=== PATIENT | male | born 2000 | race Caucasian/White ===

== ENCOUNTER 2024-01-18 20:18 | Emergency (ER) | payer OTHER, SELFPAY ==
[2024-01-18 20:34] VITALS: BP 145/81; PULSE 79; RESP 16; TEMP 36.6; O2SAT 100; BMI 20.8
[2024-01-18] MEDS: Lidocaine 4 % Cream KIT 1 APPL TOPICAL (22:41)
[2024-01-18] MEDS: LORazepam 1 MG TABLET PO (22:41)
[2024-01-18 22:42] VITALS: BP 145/76; PULSE 72; RESP 16; TEMP 36.6; O2SAT 100
[2024-01-18] MEDS: Lidocaine HCl 1 % MPF 5 ML VIAL SUBCUT (23:12)
--- NOTE | 2024-01-18 23:13 | ED.GENADULT ---
HPI - General Adult General Chief complaint: General Medical Stated complaint: ?hemorroids Time Seen by Provider: 01/18/24 22:15 Source: patient Mode of arrival: ambulatory Limitations: no limitations History of Present Illness ED Provider: JONE HPI narrative: 23 yo male with no sig PMH here with c/o itching rectal area for a week and then 2 days ago worsening pain and unable to have BM since 01/15. He denies trauma to the area, he is not bleeding. He has never had this before. No fevers/chills. MD complaint: rectal pain Onset (ago): week(s) (1) Location: buttocks Radiation: non-radiation Severity: moderate Quality: burning and aching Pain Consistency: constant Exacerbating factors: movement Associated symptoms: denies other symptoms Treatments prior to arrival: none Related Data Previous Rx's ?Medication ?Instructions ?Recorded amoxicillin 875 mg-potassium 1 tab PO BID #13 tabs 01/19/24 clavulanate 125 mg tablet docusate sodium 100 mg capsule 100 mg PO BID constipation #60 caps 01/19/24 (Colace) ondansetron 4 mg disintegrating 4 mg PO Q8H PRN nausea and 01/19/24 tablet vomiting #20 tabs sennosides 8.6 mg capsule (senna) 8.6 mg PO BEDTIME PRN constipation 01/19/24 #14 caps Allergies Allergy/AdvReac Type Severity Reaction Status Date / Time No Known Allergies Allergy Verified 01/18/24 20:38 Review of Systems Review of Systems: Constitutional : No Fever, No Chills, No Fatigue ENT/Mouth : No sore throat, No Rhinorrhea Eyes: No Eye Pain, No Swelling, No Redness Cardiovascular : No Chest Pain, No SOB, No Dyspnea on Exertion Respiratory : No Cough, No Sputum Gastrointestinal : No Nausea, No Vomiting, No Diarrhea, No abdominal Pain, pos rectal pain Genitourinary : No Dysuria, No Urinary Frequency, No Hematuria, Musculoskeletal : No joint pain, No Myalgias, No Joint Swelling Skin : No Skin Lesions, No rash Neuro : No Weakness, No Numbness, No Dizziness, no Headache All other systems reviewed and are negative PMFSH Past Medical History Attestation statement: The following information was validated with the patient. Source: old records reviewed Medical History No pertinent past medical history Social History Social History (Updated 01/18/24 @ 23:15 by Sheela Balderrama DO) Patient Tobacco Use Status: Never used Tobacco Advance Directives: No Advance Directives Information Provided: No Do you have a plan to hurt others: No Plan Physical Exam ED Vital Signs: Vital Signs - 24 hr 01/18/24 20:34 01/18/24 22:42 Temperature 97.8 F 97.8 F Pulse Rate 79 72 Respiratory Rate 16 16 Blood Pressure 145/81 H 145/76 H Pulse Oximetry 100 100 Oxygen Delivery Method Room Air Room Air BMI result Body Mass Index 20.8 Appearance: Alert. Oriented X3. No acute distress. Eyes: Pupils equal, round and reactive to light. ENT: Pharynx normal. Neck: Normal inspection. Neck supple. CVS: Normal heart rate and rhythm. Pulses normal. Respiratory: No respiratory distress. Breath sounds normal. Abdomen: Soft and non-tender. Rectal: hard firm white colored hemorrhoid no active bleeding noted, it is located above the anal opening superior about 2cm no surrounding edema or erythema, no mass felt inside the rectum Skin: Skin warm and dry. Normal skin color. Extremities: No lower extremity edema. Neuro: Oriented X 3. No motor deficit. No sensory deficit. Medications Administered Discontinued Medications Generic Name Dose Route Start Last Admin Trade Name Pilar PRN Reason Stop Dose Admin Lidocaine HCl 1 appl 01/18/24 22:34 01/18/24 22:41 Lidocaine 4 % Cream Kit TOPICAL 01/18/24 22:35 1 appl ONCE ONE Administration Protocol Lidocaine HCl 5 ml 01/18/24 22:34 01/18/24 23:12 Lidocaine Hcl 1 % Mpf 5 Ml Vial SUBCUT 01/18/24 22:35 5 ml ONCE ONE Administration Lorazepam 1 mg 01/18/24 22:34 01/18/24 22:41 Lorazepam 1 Mg Tablet PO 01/18/24 22:35 1 mg ONCE ONE Administration Procedures Abscess I/D Site: andre-rectal Local Anesthetic: lidocaine 1% and other anesthetic Amount of anesthesia used (mL): 3 Technique: needle aspiration Amount of fluid expressed (mL): 2 Sent for culture/gram staining?: No Irrigation: No Packing used?: none Complications: other (no complications using this template for hemorrhoid) Medical Decision Making Medical Decision Making MDM Narrative: 23 yo male here with rectal pain no fevers or chills at this time he is very anxious and I cannot get a good exam - will give ativan apply numbing agent and reassess. Hemorrhoid vs abscess Differential Diagnosis Differential Diagnoses: The differential diagnosis associated with the presentation includes hemorrhoids vs abscess Admission/Observation Consideration of admission/observation: Escalation of care including admission/observation considered drained and feels better will start on augmentin stool softeners Independent Historian Clinical information obtained from an independent historian. History obtained from or confirmed by: Spouse Discharge Plan Discharge Clinical Impression: Hemorrhoid thrombosis Patient Disposition: Home, Self-Care Instructions: Hemorrhoids (ED) Additional Instructions: okay to shower return in 48 hours for wound check return for worsening pain, fevers, abdominal pain, bleeding that will not stop, dizziness or any other concerns. Prescriptions: New docusate sodium [Colace] 100 mg capsule 100 mg PO BID Qty: 60 0RF ondansetron 4 mg tablet,disintegrating 4 mg PO Q8H PRN (Reason: nausea and vomiting) Qty: 20 0RF amoxicillin-pot clavulanate 875-125 mg tablet 1 tab PO BID Qty: 13 0RF senna 8.6 mg capsule 8.6 mg PO BEDTIME PRN (Reason: constipation) Qty: 14 0RF Referrals: [facility] – [place] General Surgeons [Provider Group] (call to schedule appointment in next couple of weeks) Stand Alone Forms: Work/School Release Print Language: Taiwanese
[2024-01-19 01:14] VITALS: BP 134/64; PULSE 76; RESP 16; TEMP 37.5; O2SAT 100
== END 2024-01-19 01:16 | disposition home or self-care (01) ==
PROVIDERS: Emergency Provider Emergency Medicine
DX: K64.5 Perianal venous thrombosis (principal); Z79.899 Other long term (current) drug therapy
CPT/HCPCS: 46083; 99283; 99284; J2003